=== PATIENT | male | born 1980 | race Caucasian/White ===

== ENCOUNTER → 2018-06-06 | Outpatient (CLI) | payer OTHER ==
[~2018-06-06] VITALS: Ht 167.6 cm; Wt 125.5 kg
[2018-06-06 15:02] VITALS: BP 147/82; PULSE 88; TEMP 98.4
== END ==
LOC: EUO 13:26 → COL.ER 13:26 → EDSTATUS 13:59
DX: Z20.3 Contact with and (suspected) exposure to rabies (principal); Z23 Encounter for immunization

== ENCOUNTER → 2020-01-14 | Outpatient (CLI) | payer OTHER ==
[~2020-01-14] VITALS: Ht 165.1 cm; Wt 138.8 kg
[~2020-01-14] MED LIST: FLONASEALLERGY NS; GLUCOPHAGE500 MG/TAB PO; PROAIR HFA0.09 MG/AC IH; RT ADVAIR 228 DISKUS IH; SINGULAIR 110 MG/TAB PO
[2020-01-14 10:25] VITALS: BP 140/90; PULSE 76
== END ==
LOC: LIGHT 07:49
DX: Z68.43 Body mass index [BMI] 50.0-59.9, adult (principal); R73.01 Impaired fasting glucose; G47.30 Sleep apnea, unspecified
CPT/HCPCS: G0463

== ENCOUNTER → 2020-05-04 | Outpatient (CLI) | payer OTHER ==
[~2020-05-04] VITALS: Ht 165.1 cm; Wt 138.1 kg
[2020-05-04 15:06] VITALS: BP 104/60; PULSE 88
== END ==
LOC: LIGHT 02-09 10:50
DX: E66.01 Morbid (severe) obesity due to excess calories (principal); Z68.43 Body mass index [BMI] 50.0-59.9, adult; R73.03 Prediabetes; Z79.84 Long term (current) use of oral hypoglycemic drugs
CPT/HCPCS: G0463

== ENCOUNTER → 2020-05-25 | Outpatient (CLI) | payer OTHER | LOC: LIGHT 14:56 ==

== ENCOUNTER → 2020-06-01 | Outpatient (CLI) | payer OTHER ==
[~2020-06-01] VITALS: Ht 165.1 cm; Wt 132.4 kg
[2020-06-01 13:42] VITALS: BP 124/70; PULSE 76
== END ==
LOC: LIGHT 05-25 11:52
DX: E66.01 Morbid (severe) obesity due to excess calories (principal); Z68.42 Body mass index [BMI] 45.0-49.9, adult; E78.5 Hyperlipidemia, unspecified; E88.81 Metabolic syndrome and other insulin resistance
CPT/HCPCS: G0463

== ENCOUNTER → 2020-07-20 | Outpatient (CLI) | payer BC ==
[~2020-07-20] VITALS: Ht 165.1 cm; Wt 126.6 kg
[2020-07-20 15:07] VITALS: BP 124/64; PULSE 80
== END ==
LOC: LIGHT 06-22 15:48
DX: E66.01 Morbid (severe) obesity due to excess calories (principal); Z68.43 Body mass index [BMI] 50.0-59.9, adult; E78.5 Hyperlipidemia, unspecified; E88.81 Metabolic syndrome and other insulin resistance
CPT/HCPCS: G0463

== ENCOUNTER → 2020-08-16 | Outpatient (CLI) | payer BC ==
[~2020-08-16] VITALS: Ht 165.1 cm; Wt 128.1 kg
[2020-08-16 14:14] VITALS: BP 124/70; PULSE 88
== END ==
LOC: LIGHT 08:43
DX: E66.01 Morbid (severe) obesity due to excess calories (principal); Z68.42 Body mass index [BMI] 45.0-49.9, adult; G47.33 Obstructive sleep apnea (adult) (pediatric)
CPT/HCPCS: G0463

== ENCOUNTER → 2020-08-16 | Outpatient (CLI) | payer BC | LOC: BHSO 09:16 ==

== ENCOUNTER → 2020-09-28 | Outpatient (CLI) | payer BC ==
[~2020-09-28] VITALS: Ht 165.1 cm; Wt 125.9 kg
[2020-09-28 13:09] VITALS: BP 130/74; PULSE 72
== END ==
LOC: LIGHT 08-31 14:41
DX: E66.01 Morbid (severe) obesity due to excess calories (principal); Z68.42 Body mass index [BMI] 45.0-49.9, adult; E78.5 Hyperlipidemia, unspecified; E88.81 Metabolic syndrome and other insulin resistance
CPT/HCPCS: G0463